=== PATIENT | male | born 1960 | race Caucasian/White ===

== ENCOUNTER 2017-10-18 14:32 | Emergency (ER) | payer OTHER ==
--- NOTE | 2017-10-18 14:46 | PDOC ---
Rapid Medical Evaluation Time Seen by Provider: 10/18/17 14:43 Medical Evaluation: Allergies Allergy/AdvReac Type Severity Reaction Status Date / Time No Known Allergies Allergy Verified 12/07/14 13:07 10/18/17 14:44 I have performed a brief in-person evaluation of this patient. The patient presents with a chief complaint of: fevers, sore throat dry cough for 4 days Pertinent physical exam findings: tonsillar erythema, Lungs CTAB I have ordered the following: rapid strep The patient will proceed to the ED for further evaluation. Discharge Disposition - Diagnosis Viral illness - Referrals - Patient Instructions - Post Discharge Activity
[2017-10-18 14:47] VITALS: BP 118/78; PULSE 82; TEMP 98.5; BMI 28.1
--- NOTE | 2017-10-18 15:55 | PDOC ---
History of Present Illness - General Chief Complaint: Cold Symptoms Stated Complaint: CONGESTED Time Seen by Provider: 10/18/17 14:43 History Source: Patient - History of Present Illness Timing/Duration: reports: other Associated Symptoms: reports: cough, nasal congestion, nasal drainage. denies: earache, facial pain, fever/chills, muscle aches, shortness of breath, sore throat Past History - Past Medical History Allergies/Adverse Reactions: Allergies Allergy/AdvReac Type Severity Reaction Status Date / Time No Known Allergies Allergy Verified 10/18/17 14:44 Home Medications: Ambulatory Orders NK [No Known Home Medication] 10/18/17 COPD: No - Suicide/Smoking/Psychosocial Hx Smoking Status: No Smoking History: Never smoked Number of Cigarettes Smoked Daily: 0 Information on smoking cessation initiated: No Hx Alcohol Use: No Drug/Substance Use Hx: No Substance Use Type: None Hx Substance Use Treatment: No Review of Systems - Review of Systems Constitutional: Yes: Malaise. No: Chills, Fever HEENTM: No: Ear Pain, Throat Pain Respiratory: Yes: Cough. No: Shortness of Breath Cardiac (ROS): No: Chest Pain ABD/GI: No: Diarrhea, Nausea, Vomiting Integumentary: No: Rash *Physical Exam - Vital Signs Last Vital Signs Temp Pulse Resp BP Pulse Ox 98.5 F 82 18 118/78 100 10/18/17 14:44 10/18/17 14:44 10/18/17 14:44 10/18/17 14:44 10/18/17 14:44 - Physical Exam General Appearance: Yes: Appropriately Dressed. No: Apparent Distress HEENT: positive: Normal ENT Inspection, Normal Voice. negative: Scleral Icterus (R), Scleral Icterus (L) Neck: positive: Supple. negative: Lymphadenopathy (R), Lymphadenopathy (L) Respiratory/Chest: positive: Lungs Clear, Normal Breath Sounds. negative: Respiratory Distress Cardiovascular: positive: Regular Rate, S1, S2 Integumentary: positive: Dry, Warm Neurologic: positive: Fully Oriented, Alert, Normal Mood/Affect ED Treatment Course - ADDITIONAL ORDERS Additional order review: 10/18/17 14:47 Group A Strep Rapid Antigen - Final Throat Medical Decision Making - Medical Decision Making 10/18/17 15:56 57-year-old male, no significant history, here with productive cough with nasal congestion, rhinorrhea and malaise 4 days. No fever, chills, body aches, ear pain, sore throat, shortness of breath, chest pain, diarrhea, vomiting or rash. No recent travel or sick contacts. Patient well-appearing and stable with unremarkable exam. Suspect viral etiolog at this time. DC with supportive treatment *DC/Admit/Observation/Transfer Diagnosis at time of Disposition: Viral illness - Discharge Dispostion Disposition: HOME - Referrals - Patient Instructions Printed Discharge Instructions: DI for Viral Syndrome Additional Instructions: You most likely have a viral illness. Drink plenty of fluids, rest, take Robitussin for cough and Motrin or Tylenol for pain and/or fever - Post Discharge Activity Forms/Work/School Notes: Back to Work
== END 2017-10-18 16:03 | disposition home or self-care (01) ==
LOC: JERFT 14:32
DX: J06.9 Acute upper respiratory infection, unspecified (principal); B97.89 Other viral agents as the cause of diseases classified elsewhere
CPT/HCPCS: 87070; 87430; 99281-25